=== PATIENT | female | born 1995 | race Caucasian/White ===

== ENCOUNTER 2021-01-25 10:04 | Outpatient (REF) | payer OTHER, SELFPAY ==
[2021-01-26 14:02] LABS: C. trachomatis RNA TMA NOT DETECTED (NOT DETECTED); N. gonorrhoeae RNA TMA NOT DETECTED (NOT DETECTED)
== END 2021-01-25 10:05 | disposition home or self-care (01) ==
LOC: HO.LAB 10:04
PROVIDERS: PCP Pediatrics; Referring Provider Pediatrics; Visit Provider Advanced Practice Midwife
DX: Z01.419 Encounter for gynecological examination (general) (routine) without abnormal findings (principal); Z20.2 Contact with and (suspected) exposure to infections with a predominantly sexual mode of transmission
CPT/HCPCS: 36415; 87491; 87591

== ENCOUNTER 2022-02-01 08:04 | Outpatient (REF) | payer OTHER, SELFPAY ==
[2022-02-01 16:23] LABS: CT PCR NOT DETECTED (Not Detect.); NG PCR NOT DETECTED (Not Detect.)
== END 2022-02-01 08:05 | disposition home or self-care (01) ==
LOC: HO.LAB 08:04
PROVIDERS: PCP Pediatrics; Visit Provider Advanced Practice Midwife
DX: Z01.419 Encounter for gynecological examination (general) (routine) without abnormal findings (principal); Z20.2 Contact with and (suspected) exposure to infections with a predominantly sexual mode of transmission
CPT/HCPCS: 87491; 87591

== ENCOUNTER 2022-07-25 09:25 | Day surgery (SDC) | payer OTHER, SELFPAY ==
[2022-07-25] VITALS (8 sets, daily range): BP systolic 137–153; BP diastolic 88–106; PULSE 92–102; RESP 14–22; TEMP 36.6–37.2; O2SAT 95–97; BMI 37.8
--- NOTE | ~2022-07-25 | FL_ITS ---
EXAMINATION: XR LUMBAR PUNCTURE CLINICAL INFORMATION: Pseudotumor cerebri with headache, 04/08 today. COMPARISON: None TECHNIQUE: Following explaining fluoroscopy-guided lumbar puncture procedure, benefits and risks, a written consent was obtained. Patient was placed prone on fluoroscopy table and optimal site was selected and marked on the skin. The area was cleaned and draped with 2% chlorhexidine solution. 1% lidocaine was injected at puncture site. A 20-gauge short spinal needle was then advanced from the skin intrathecally at the L4-L5 disc level. Following removing the stylet and observing CSF return, the patient was quickly placed in left lateral decubitus view and opening CSF pressure was obtained. Subsequently CSF fluid was collected in 4 test tubes. Following collection of CSF the stylet was reintroduced and needle withdrawn. Complete hemostasis achieved at puncture site with sterile Band-Aid applied at puncture site. Patient tolerated procedure extremely well. FINDINGS: On a single image of the lumbar spine there is maintained lumbar lordosis. The vertebral heights, alignment and disc heights are normal. There is a lumbar puncture needle at the L4-L5 disc level. Opening CSF pressure measured 11.5 cm of water. Approximately 14 mL of clear CSF fluid was collected in 4 test tubes and sent to lab. FLUOROSCOPY TIME: 0.5 minutes DOSE AREA PRODUCT: 6.03 uGy-m2 (microgray-meter squared) FL/FL guided lumbar puncture LP IMPRESSION: Successful fluoroscopy-guided lumbar puncture performed at L4-L5 disc level without immediate complications.
[2022-07-25 09:45] LABS: MANUAL DIFF FLAG NO
[2022-07-25 09:49] LABS: UPreg QC Valid YES; Urine Pregnancy NEGATIVE (NEGATIVE)
[2022-07-25 09:52] LABS: Basophils Absolute Auto 0.1 X10*3/uL (0.0-0.2); Basophils Percent Auto 0.6 % (0-2); Eosinophils Absolute Auto 0.1 X10*3/uL (0.0-0.4); Eosinophils Percent Auto 0.7 % (0-4); Hematocrit 41.9 % (37.0-47.0); Imm Gran Abs Auto 0.02 X10*3/uL (0.00-0.03); Imm Gran Pct Auto 0.2 % (0.0-0.4); Lymphocytes Absolute Auto 3.9 X10*3/uL (1.2-4.9); Lymphocytes Percent Auto 44.1 % (20-40); Mean Corpuscular HGB Conc 35.8 g/dl (31.0-35.0); Mean Corpuscular Hemoglobin 28.7 pg (27.0-33.0); Mean Corpuscular Volume 80.1 fL (80.0-98.0); Monocytes Absolute Auto 0.6 X10*3/uL (0.1-1.2); Monocytes Percent Auto 6.7 % (2-11); Neutrophils Absolute Auto 4.3 x10*3/uL (2.0-8.3); Neutrophils Percent Auto 47.7 % (45-73); Platelet Count 272 X10*3/uL (160-400); Prothrombin Time 11.6 SEC (10.0-13.1); Red Blood Count 5.23 X10*6/uL (4.20-5.50); Red Cell Distribution Width 12.5 % (11.0-16.0); White Blood Count 8.9 X10*3/uL (4.8-10.8)
[2022-07-25 09:55] LABS: Partial Thromboplastin Time 32.4 SEC (26.0-36.4)
[2022-07-25] MEDS: Acetaminophen 325 MG TABLET 975 MG PO (12:40)
[2022-07-25 13:24] LABS: CSF Appearance Clear, Colorless; CSF Tube # 1
[2022-07-25 13:35] LABS: Glucose CSF 59 mg/dL; Total Protein CSF 49.4 mg/dL (15-45)
[2022-07-25 13:53] LABS: Appearance CSF CLEAR; CSF Tube # 4; Color CSF COLORLESS; Lymphocytes CSF 100 %; Red Blood Cell CSF 0 MM*3; White Blood Cell CSF 1 MM*3
== END 2022-07-25 15:00 | disposition home or self-care (01) ==
PROVIDERS: Psychiatry & Neurology Neurology; PCP Pediatrics; Visit Provider Radiology Diagnostic Radiology
PROC: 009U3ZZ Drainage of Spinal Canal, Percutaneous Approach (ICD-10-PCS; CPT 62270; principal; 2022-07-25 11:00)
DX: G93.2 Benign intracranial hypertension (principal); G44.209 Tension-type headache, unspecified, not intractable
CPT/HCPCS: 36415; 62328; 81025; 82945; 84157; 85025; 85610; 85730; 87015; 87070; 87205; 89051

== ENCOUNTER 2023-06-10 08:07 | Outpatient (REF) | payer OTHER, SELFPAY ==
[2023-06-11 11:54] LABS: CT PCR NOT DETECTED (Not Detect.); NG PCR NOT DETECTED (Not Detect.)
== END 2023-06-10 08:08 | disposition home or self-care (01) ==
LOC: HO.LNP 08:07
PROVIDERS: PCP Pediatrics; Visit Provider Advanced Practice Midwife
DX: Z01.419 Encounter for gynecological examination (general) (routine) without abnormal findings (principal); Z20.2 Contact with and (suspected) exposure to infections with a predominantly sexual mode of transmission
CPT/HCPCS: 0353U; 88142

== ENCOUNTER 2023-06-10 08:07 | Outpatient (AMB) | payer OTHER, SELFPAY ==
--- NOTE | 2023-06-10 08:11 | MHC.OFFVIS ---
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 Scribed for COCO Hernandez by Kati Brink medical driver, on 06/10/2023 at 8:21 am EST. Silk Winding Machine Operator: Silk Winding Machine Operator Present (Olive) Allergies No Known Allergies Allergy (Verified 06/10/23 08:13) Is last menstrual period known: Yes Last menstrual period: 05/16/23 HPI HPI Comments History of Present Illness Details She is a premenopausal woman presenting for annual exam. Doing well with no obgyn hospitalist physician concerns. She admits to eating healthy and tries to stay active with exercise. Currently sexually active with new partner. Uses Paragard for BC and is doing well on it. Denies vaginal itching and irritation. STD screening offered; she accepts. STD blood work offered; she declines Denies family hx of colon and ovarian cancer. Last pap smear 01/20/20. [facility] Medical History Chronic headaches Concussion Vitamin D deficiency Surgical History Hx of wisdom tooth extraction Family History Maternal Grandmother Lung cancer Breast cancer Maternal Grandfather CVD (cardiovascular disease) Paternal Grandfather CVD (cardiovascular disease) Social History Alcohol intake: current Alcohol intake frequency: holidays/special occasions only Patient Tobacco Use Status: Never used Tobacco Current occupational status: employed Current occupation: [employer] Sexual orientation: Straight/Heterosexual Gender identity: Female Female Reproductive History Menstrual Age of Menarche: 13 Date of last menstrual period: 05/16/23 control method: copper IUCD (Paragard 03/2017; IUD strings present 05/2023) Total pregnancies: 0 Date of last pap smear: 01/20/20 (neg) Physical Exam Vital Signs: Last Vital Signs BP 132/100 H 06/10/23 08:12 BMI result Body Mass Index 36.7 Const General: cooperative, healthy appearing, no acute distress, well developed and alert Orientation/consciousness: patient oriented x3 HEENT Head: Yes normal to inspection Eyes General: appearance normal, both eyes and all related structures Neck Neck: Yes normal visual inspection Thyroid: Thyroid normal Chest Chest palpation & inspection: normal inspection of the chest Breast/axilla inspection: normal inspection of the breasts (no puckering, dimpling, peau de orange, retraction, discharge, masses) Breast/axilla palpation: normal palpation of the breasts Resp Effort & Inspection: normal respiratory effort GI Inspection: Yes normal to inspection Palpation (GI): Soft to palpation (to palpation) Rectal Exam - Female: deferred General: Yes bladder normal to inspection External Female Exam: normal external appearance and normal appearance of the urethra Speculum Exam - Vagina: normal appearance of the vagina, normal palpation and normal vaginal discharge Speculum Exam - Cervix: normal appearance of the cervix, normal palpation and Other cervical findings present (IUD strings present, bled slightly with pap) Bimanual exam- vagina & uterus: normal palpation and normal palpation Bimanual Exam- Adnexa, other: normal adnexae and no masses Skin General skin exam: no rashes or lesions noted Neuro General: patient oriented x3 Cognition (Neuro): normal cognition Extrem General: Yes normal to inspection Psych Attitude: cooperative Thought process: Normal thought process present Thought content: Normal thought content present Assessment & Plan Assessment & Plan (1) Encounter for annual routine gynecological examination: Code(s): Z01.419 - Encounter for gynecological examination (general) (routine) without abnormal findings Plan: Discussed: Current recommendations for pap smears per ASCCP guidelines Breast awareness and periodic self breast exams. Maintaining a healthy lifestyle including a well balanced diet and routine exercise. GC/CT panel done today. Await results and treat accordingly. All of her questions and concerns were addressed to the best of my ability. RTO in one year for AG. (2) Potential exposure to STD: Code(s): Z20.2 - Contact with and (suspected) exposure to infections with a predominantly sexual mode of transmission Orders: Orders CT NG by PCR Today Z20.2 - Contact with and (suspected) exposure to infections with a predominantly sexual mode of transmission Pap Smear Today Z01.419 - Encounter for gynecological examination (general) (routine) without abnormal findings Coding Level of Care Code Est Pt Prev Care 18-39y(75474) Diagnoses Encounter for annual routine gynecological examination Z01.419 Potential exposure to STD Z20.2
[2023-06-10 08:12] VITALS: BP 132/100; BMI 36.7
[2023-06-10 08:45] VITALS: BP 122/86
== END 2023-06-10 09:00 | disposition home or self-care (01) ==
LOC: HO.HWS 08:07
PROVIDERS: PCP Pediatrics; Visit Provider Advanced Practice Midwife
DX: Z01.419 Encounter for gynecological examination (general) (routine) without abnormal findings (principal); Z20.2 Contact with and (suspected) exposure to infections with a predominantly sexual mode of transmission
CPT/HCPCS: 99395

== ENCOUNTER 2024-09-14 14:09 | Outpatient (REF) | payer BC, SELFPAY ==
[2024-09-15 11:25] LABS: Bacterial Vaginosis PCR NEGATIVE (Negative); Candida Group PCR NOT DETECTED (Not Detect); Candida glab krusei PCR NOT DETECTED (Not Detect); Trichomonas vaginalis PCR NOT DETECTED (Not Detect)
[2024-09-15 11:28] LABS: CT PCR NOT DETECTED (Not Detect.); NG PCR NOT DETECTED (Not Detect.)
== END 2024-09-14 14:10 | disposition home or self-care (01) ==
LOC: HO.LNP 14:09
PROVIDERS: PCP Pediatrics; Visit Provider Advanced Practice Midwife
DX: Z01.419 Encounter for gynecological examination (general) (routine) without abnormal findings (principal); Z20.2 Contact with and (suspected) exposure to infections with a predominantly sexual mode of transmission
CPT/HCPCS: 0352U; 87491; 87591

== ENCOUNTER 2024-09-14 14:09 | Outpatient (AMB) | payer BC, SELFPAY ==
--- NOTE | 2024-09-14 14:10 | A.OFFVIS_ITS ---
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 Doing well with no concerns. She tries to eat healthy and stays active with exercise. Regular monthly menses with the ParaGard IUD inserted 2017. Currently is sexually active. She denies vaginal itching and irritation. STI screening offered; she accepts, declined blood work. Denies family history of ovarian or colon cancer. FH breast cancer. Last pap smear 2022, negative. [facility] Medical History (Updated 09/14/24 @ 14:45 by Yoly Borja CNM) History of use of contraceptive intrauterine device (IUD) Vitamin D deficiency Concussion Chronic headaches Surgical History Hx of wisdom tooth extraction Family History Maternal Grandmother Lung cancer Breast cancer Maternal Grandfather CVD (cardiovascular disease) Paternal Grandfather CVD (cardiovascular disease) Social History Alcohol intake: current Alcohol intake frequency: holidays/special occasions only Comment: previously medicated Patient Tobacco Use Status: Never used Tobacco Current occupational status: employed Current occupation: [employer] Sexual orientation: Straight/Heterosexual Gender identity: Female Female Reproductive History Menstrual Age of Menarche: 13 Duration of menses: 8-10 days Date of last menstrual period: 08/30/24 control method: copper IUCD (2018) Total pregnancies: 0 Date of last pap smear: 06/12/23 History of abnormal pap smear: No History of STI: No Review of Systems Const All systems reviewed & are unremarkable except as noted in HPI and below Reports as per HPI Eyes Reports no additional complaints ENT Reports no additional complaints Card Reports no additional complaints Resp Reports no additional complaints GI Reports as per HPI and Reports no additional complaints Reports as per HPI Musc Reports no additional complaints Skin/Breast Reports as per HPI Neuro Reports no additional complaints Psych Reports no additional complaints Endo Reports no additional complaints Joe/Lymph Reports no additional complaints Aller/Immun Reports no additional complaints Physical Exam Vital Signs: Last Vital Signs BP 124/66 09/14/24 14:11 BMI result Body Mass Index 35.7 Const General: cooperative, healthy appearing, no acute distress, well developed and alert Orientation/consciousness: patient oriented x3 HEENT Head: Yes normal to inspection Eyes General: appearance normal, both eyes and all related structures Neck Neck: Yes normal visual inspection Thyroid: Thyroid normal Chest Chest palpation & inspection: normal inspection of the chest and other (no puckering, dimpling, peau de orange, retraction, discharge, masses) Breast/axilla inspection: normal inspection of the breasts Breast/axilla palpation: normal palpation of the breasts Resp Effort & Inspection: normal respiratory effort GI Inspection: Yes normal to inspection Palpation (GI): Soft to palpation Rectal Exam - Female: deferred General: Yes bladder normal to palpation External Female Exam: normal external appearance and normal appearance of the urethra Speculum Exam - Vagina: normal appearance of the vagina, normal palpation and normal vaginal discharge Speculum Exam - Cervix: normal appearance of the cervix, normal palpation and Other cervical findings present (IUD strings at the os) Bimanual exam- vagina & uterus: normal bimanual exam, normal palpation, uterine size normal, bladder normal to palpation, normal palpation and non-tender Bimanual Exam- Adnexa, other: no masses Skin General skin exam: no rashes or lesions noted Rashes: no rashes Neuro General: patient oriented x3 Cognition (Neuro): normal cognition Extrem General: Yes normal to inspection Psych Attitude: cooperative Thought process: Normal thought process present Assessment & Plan Assessment & Plan (1) Encounter for annual routine gynecological examination: Code(s): Z01.419 - Encounter for gynecological examination (general) (routine) without abnormal findings Category: Medical Plan: Discussed: Current recommendations for pap smears per ASCCP guidelines. Breast awareness and periodic breast exams. Maintain a healthy lifestyle including a well balanced diet and routine exercise. Patient verbalizes understanding and agrees to the plan of care. She was given opportunity to ask questions and all questions were answered to the best of my ability. 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 This note is constructed using voice recognition software. While every effort has been made to ensure accuracy, strike operations officer errors may have been included. Orders: Orders CT NG by PCR Today Z01.419 - Encounter for gynecological examination (general) (routine) without abnormal findings Bacterial Vaginosis Panel Today Z01.419 - Encounter for gynecological examination (general) (routine) without abnormal findings Coding Level of Care Code Est Pt Prev Care 18-39y(43566) Diagnoses Encounter for annual routine gynecological examination Z01.419
[2024-09-14 14:11] VITALS: BP 124/66; BMI 35.7
== END 2024-09-14 14:48 | disposition home or self-care (01) ==
LOC: HO.HWS 14:09
PROVIDERS: PCP Pediatrics; Visit Provider Advanced Practice Midwife
DX: Z01.419 Encounter for gynecological examination (general) (routine) without abnormal findings (principal)
CPT/HCPCS: 99395

== ENCOUNTER 2025-02-22 14:35 | Outpatient (AMB) | payer OTHER, SELFPAY ==
--- NOTE | 2025-02-22 14:25 | A.OFFPC_ITS ---
Vital Signs 02/22/25 14:33 Height 5 ft 3 in Weight 188 lb BMI 33.3 BP 142/82 H Blood Pressure Location Rt brachial Pulse 86 Pulse Source Pulse Oximeter Temp 98.2 F Pulse Oximetry (%) 98 Intake Visit Reasons: establish care Intake Note: no issues Allergies No Known Allergies Allergy (Verified 02/22/25 14:45) Medication List - Last Reconciled 02/22/25 by Kellie Loredo PA-C amitriptyline 75 mg PO BEDTIME [id number]-[id number]-[id number] [id number] mg 1 cap PO Q4H PRN copper (ParaGard T 380A) intrauterine topiramate 100 mg PO BID PFSH Medical History Class 1 obesity with body mass index (BMI) of 33.0 to 33.9 in adult Establishing care with new doctor, encounter for Annual physical exam History of use of contraceptive intrauterine device (IUD) Vitamin D deficiency Concussion Chronic headaches Surgical History Hx of wisdom tooth extraction Family History Maternal Grandmother Lung cancer Breast cancer Maternal Grandfather CVD (cardiovascular disease) Paternal Grandfather CVD (cardiovascular disease) Social History Alcohol intake: current Alcohol intake frequency: holidays/special occasions only Comment: previously medicated Patient Tobacco Use Status: Never used Tobacco Current occupational status: employed Current occupation: [employer] Sexual orientation: Straight/Heterosexual Gender identity: Female Female Reproductive History Menstrual Age of Menarche: 13 Physical exam (Primary Care) Vital Signs: Last Vital Signs Temp 98.2 F 02/22/25 14:33 Pulse 86 02/22/25 14:33 BP 142/82 H 02/22/25 14:33 Pulse Ox 98 02/22/25 14:33 Care Plan Goal for BP management: <130/80 at goal BMI result Body Mass Index 33.3 BMI Assessment/Plan discussion: High BMI High, discussed plan: lifestyle, weight reduction, dietary, physical activity and alcohol moderation Tobacco/Smoking Status: Tobacco use Status Patient Tobacco Use Status Never used Tobacco 02/22/25 14:31 Coding Level of Care Code New Pt Prev Care 18-39yr(19040 Diagnoses Annual physical exam Z00.00 Establishing care with new doctor, encounter for Z76.89 Chronic headaches R51.9; G89.29 Concussion S06.0X9A Vitamin D deficiency E55.9 Class 1 obesity with body mass index (BMI) of 33.0 to 33.9 in adult E66.811; Z68.33 Assessment & Plan Assessment & Plan (1) Annual physical exam: Code(s): Z00.00 - Encounter for general adult medical examination without abnormal findings Category: Medical (2) Establishing care with new doctor, encounter for: Code(s): Z76.89 - Persons encountering health services in other specified circumstances Category: Medical (3) Chronic headaches: Code(s): R51.9 - Headache, unspecified; G89.29 - Other chronic pain Category: Medical Plan: Patient to continue amitriptyline 75 mg at bedtime, Fioricet 1 tablet every 4 hours as needed, topiramate 100 mg p.o. b.i.d. and regular follows with Neurology. Condition is chronic and stable continue to monitor. (4) Concussion: Code(s): S06.0X9A - Concussion with loss of consciousness of unspecified duration, initial encounter Category: Medical Plan: Patient to continue amitriptyline 75 mg at bedtime, Fioricet 1 tablet every 4 hours as needed, topiramate 100 mg p.o. b.i.d. and regular follows with Neurology. Condition is chronic and stable continue to monitor. (5) Vitamin D deficiency: Code(s): E55.9 - Vitamin D deficiency, unspecified Category: Medical Plan: Patient to start taking vitamin-D supplements. Condition is chronic and stable continue to monitor. (6) Class 1 obesity with body mass index (BMI) of 33.0 to 33.9 in adult: Code(s): E66.811 - Obesity, class 1; Z68.33 - Body mass index [BMI] 33.0-33.9, adult Category: Medical Plan: Patient to continue improving her diet and exercise regimen. Condition is chronic and stable continue to monitor. Plan Plan Patient was informed and verbally consented to the use of an ambient scribe for clinic note documentation during this visit. 1. Vitamin D Deficiency Advised the patient to initiate vitamin D supplementation to prevent bone health deterioration over time. 2. Chronic Headaches Chronic headaches attributed to a previous concussion; ongoing neurologist consultations are appropriate at this stage. 3. 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 4. Weight Management Support recommended for ongoing lifestyle changes pertinent to weight maintenance, including caloric monitoring and moderate exercise. Discussion Notes We reviewed the patient's immunization history to ensure compliance with nursing school requirements, identifying a potential need for an antibody test to ascertain hepatitis B immunity. I explained vaccination protocols, particularly highlighting the need for Tdap renewal if immunity wanes. Risks of vitamin D deficiency were discussed, with a recommendation for supplementation to prevent bone-related issues. We discussed her family history of breast cancer, the implications for cancer screening, and potential adjustments to the schedule of mammograms. Her weight loss strategies and efforts were acknowledged, endorsing continued self-management efforts, considering her proactive engagement in lifestyle modifications. Future communication regarding further screening or procedural advice will occur as necessary. Orders: Orders C Reactive Protein Today Z00.00 - Encounter for general adult medical examination without abnormal findings Magnesium Today Z00.00 - Encounter for general adult medical examination without abnormal findings Vitamin D 25-OH Total Today Z00.00 - Encounter for general adult medical examination without abnormal findings Vitamin B12 and Folate Today Z00.00 - Encounter for general adult medical examination without abnormal findings TSH reflex Free T4 Today Z00.00 - Encounter for general adult medical examination without abnormal findings Testosterone, Total Today Z00.00 - Encounter for general adult medical examination without abnormal findings Estrogen Today Z00.00 - Encounter for general adult medical examination without abnormal findings Hemoglobin A1c Today Z00.00 - Encounter for general adult medical examination without abnormal findings Comprehensive Linneus. Panel Fast Today Z00.00 - Encounter for general adult medical examination without abnormal findings Complete Blood Count Auto Diff Today Z00.00 - Encounter for general adult medical examination without abnormal findings Lipid Panel Today Z00.00 - Encounter for general adult medical examination without abnormal findings Liver Panel Today Z00.00 - Encounter for general adult medical examination without abnormal findings Progesterone Today Z00.00 - Encounter for general adult medical examination without abnormal findings Prolactin Today Z00.00 - Encounter for general adult medical examination without abnormal findings Hepatitis B Surface Ab Qnt Today Z00.00 - Encounter for general adult medical examination without abnormal findings Patient Instructions: Patient Instructions - Obtain vitamin D supplements to address deficiency. - Continue weight management efforts through regular exercise and dietary adjustments. - Undergo blood testing for hepatitis B immunity as outlined, with follow-up vaccinations if needed. - Maintain regular neurologist consultations for headache management. - Monitor for any new symptoms; seek care if concerns arise. - Attend appointments for annual check-ups and screenings as per a structured timeline. - Review patient portal or contact office for any documentation or follow-up response needed regarding any further screenings or evaluations discussed. 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 She has a history of chronic headaches stemming from a concussion in high school around 2009, for which she consults with a neurologist and has undergone imaging in the past. The headaches have been chronic since the initial concussion. In terms of preventative healthcare, she was not previously taking vitamin D supplements despite having a deficiency. Her family history includes maternal breast cancer on her grandmother's side, wh ich has implications for the management of cancer screening going forward. For her nursing school admission, the patient sought to confirm her immunization record starting from childhood, including COVID, influenza, Tdap, MMR, and hepatitis B. She has been compliant with Tb screening requirements for her employment, and further testing might be performed to verify her immunity to hepatitis B. Following her wellness goals, the patient also worked towards weight loss, going from 230 pounds in December of the previous year to 188 pounds during this visit. 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 - Exercise: Reports regular walking as part of weight management. - Family History: Maternal grandmother had breast cancer. - Nutritional Intake: Engaged in caloric reduction and self-directed weight loss efforts. Review of Systems - Neurological: Reports chronic headaches since a concussion in 2009. - Musculoskeletal: Denies history of falls or balance issues. - General: Denies recent weight gain or unintentional weight loss beyond self- directed. - Hematological: Denies history of anemia or bleeding disorders. Physical Exam Appearance: Alert. Oriented X3. No acute distress. Head: Normal external exam. Normocephalic. Atraumatic. Eyes: Pupils are equal, round, and reactive to light. Extraocular movements intact. Conjunctiva and sclera normal. Eyelids normal. Ears: External auditory canal normal. Tympanic membranes normal. Throat: Pharynx normal. Uvula midline. Moist mucous membranes. Neck: Normal inspection. Neck supple. Full range of motion. No adenopathy. Thyroid Normal. No meningeal signs. No neck mass noted. Cardiovascular: Normal heart rate and rhythm. Heart sound normal. No murmurs noted. Pulses normal throughout. Respiratory: No respiratory distress. Painless inspiration. Breath sounds normal. No wheezes/rales/rhonchi noted. Chest nontender. No accessory muscle usage noted or decreased air movement noted. Abdomen: Soft and nontender. Bowel sounds normal in all 4 quadrants. No distention noted. No organomegaly noted. No visible injury noted. Back: No costovertebral angle tenderness. Full range of motion noted. Skin: Skin warm and dry. Normal skin color. Normal skin turgor. No rashes/lesions/lacerations noted. Extremities: No lower extremity edema. Extremities exhibit normal range of motion. Extremities nontender. Neuro: Oriented X 3. No motor deficit. No sensory deficit. Reflexes normal. Chronic headaches noted, with a history of concussion in high school. Vitamin D deficiency noted.
[2025-02-22 14:33] VITALS: BP 142/82; PULSE 86; TEMP 36.8; O2SAT 98; BMI 33.3
--- OUTSIDE RECORDS SUMMARY | 2025-02-22 18:16 | XMS_ITS | Clinical Summary ---
Author Organization [facility] Address [address] [place] [address] Care Team Providers Care Bail Attacher Name Role Phone Unavailable Primary Care Provider Unavailabl e Social History Tobacco Use Types Packs/Day Years Used Date Smoking Tobacco: Never Assessed Sex and Gender Information Value Date Recorded Sex Assigned at Not on file Gender Identity Not on file Sexual Orientation Not on file Plan of Treatment Health Maintenance Due Date Last Done Comments Hepatitis C Virus Screening 1994 HIV Screening 2007 DTaP/Tdap/Td Vaccines (1 - Tdap) 2013 Hepatitis B Vaccines (1 of 3 - 19+ 3-dose series) 2013 COVID-19 Vaccine ( - 2023-2 5 season) 2024 HPV Vaccines Aged Out No longer eligi ble based on patient's age to complete this topic Pneumococcal Vaccine: Pediat genesis (0-5 Years) and At-Risk Patients (6 to 49 Years) Aged Out No longer eligible b ased on patient's age to complete this topic
--- OUTSIDE RECORDS SUMMARY | 2025-02-22 18:16 | XMS_ITS | Clinical Summary ---
Author Organization [facility] Address [address] [place] [address] Phone Care Team Providers Care 1St Grade Teacher Name Role Phone Mariel Rosas MD Primary Care Provider [phone] Allergies No known active allergies Medications amitriptyline 75 MG tablet Take by mouth daily. Active topiramate 100 MG tablet Take 100 mg by mouth 2 times daily. Active MELATONIN GUMMIES PO Take by mouth. Acti ve Paragard Intrauterine Copper intrauterine device by Intrauterine route. Active Active Problems Problem Noted Date Diagnosed Date Overweight 08/11/2018 Assessment & Plan (08/11/2018 10:37 AM EDT): Counseling done. Chronic nonintractable headache 08/10/2018 Assessment & Plan (08/11/2018 10:35 AM EDT): Seeing Neurology, currently on Topamax and Amitriptyline, headaches are still not well-controlled. She has an upcoming appt with Neuro, and she will discuss persistent daily CAMERON at that visit. Elevated blood pressure read ing in office without diagnosis of hypertension 08/10/2018 Assessment & Plan (08/11/2018 10:48 AM EDT): Pt continues with elevated BP in the office. This has been an issue at previous visits as well, and could be contributing to her headaches. Will recheck in 3 months. 08-10-18: 144/98 (left arm, sitting) 02-17-18: 120/86 (L, sit) 08-28-17: 118/78 (L, sit) 08-07-17: 132/90 (L, sit), repeat 124/84 (L, sit) 11/15: 130/90 (L, sit) 10/16: 114/72 (L, sit) 07/16: 130/80 (L, sit) Immunizations Immunization Administration Dates Next Due DTaP 12/27/1998, 6,06/23/1995,04/23,03/05/1995 HPV, Quadrivalent 03/18/2014,10/23/2013,06/17/20 13 Hep A, Adult 08/10/2018 Hep B, ped/adol 09/23/1995,01/24/1995,1994 IPV 12/01/1998, 5,03/31/1995,03/01 Influenza, injectable, quadr ivalent, preservative free 08/10/2018 MMR 12/27/1998,03/24/1996 Meningococcal Conj (Menactra) MCV4P 08/06/2012,0 07/08/2007 Tdap 08/07/2017,07/16/2016,01/01/2007 Varicella 06/25/2010,03/24/1996 Family History Medical History Relation Name Comments No Known Problems Brother Guillermo No Known Problems Father Robin No Known Problems Mother Cem Relation Name Status Comments Brother Guillermo Alive Father Robin Alive Mother Cem Alive Social History Tobacco Use Types Packs/Day Years Used Date Smoking Tobacco: Never Smokeless Tobacco: Never Hunger/Food Answer Date Recorded In the last 12 months, did y ou or your family ever eat less than you felt you should because there wasn't enough money for food? No 08/21/2020 Stable Housing Answer Date Recorded Are you worried that in the next 2 months you may not have stable housing? No 08/21/2020 Transportation Concerns Answer Date Rec orded In the last 12 months, have you or your family ever had to go without healthcare because you didn't have a way to get there? No 08/21/2020 Hazards in Home Answer Date Recorded Think about the place you li ve. Do you have problems with any of the following? Pests (mice or roaches), mold, no/not working smoke detectors, water leaks, no window guards. No 2019 Financing Utilities Answer Date Recorde d In the last 12 months, has t he electric, gas, oil, or water company threatened to shut off your services in your home? No 08/21/2020 Safety at Home Answer Date Recorded Are you or your family worried about feeling saf e in your home? No 08/21/2020 Outside Support Answer Date Recorded Do you feel that you need mo re support from other people or programs to help you care for yourself or your family? No 08/21/2020 Understanding Health Concerns Answer Da te Recorded Do you need help understandi ng your or your child's healthcare needs (diagnosis, medications, plan, etc.)? No 08/21/2020 Financing Health Concerns Answer Date R ecorded In the last 12 months, was t here a time when your child needed to see a doctor or get medications or supplies but could not because of cost? No 08/21/2020 Missing School or Work Answer Date Sourav rded Did you or your child miss s chool or work because of a health problem that could have been avoided? No 08/21/2020 Comments No Sex and Gender Information Value Date Recorded Sex Assigned at Not on file Legal Sex Female 11:26 AM EDT Gender Identity Not on file Sexual Orientation Straight 08/12/2019 10 :13 AM EDT Last Filed Vital Signs Vital Sign Reading Time Taken Comments Blood Pressure 150/106 08/28/2020 5:58 PM EDT Pulse 88 08/28/2020 4:01 PM EDT Temperature 37.1 ??C (98.7 ??F) 08/28/2020 4:01 PM ED T Respiratory Rate - - Oxygen Saturation - - Inhaled Oxygen Concentration - - Weight 98.3 kg (216 lb 11.2 oz) 08/28/2020 4:01 PM EDT Height 162.6 cm (5' 4 ) 08/28/2020 4:01 PM EDT Body Mass Index 37.2 08/28/2020 4:01 PM EDT Plan of Treatment Health Maintenance Due Date Last Done Comments Influenza Vaccines (#1) 2024 09/21/20, 09/21/2019, 08/10/2018 COVID-19 Vaccine (2 - season) 2024 04/05/2021 DTaP,Tdap,and Td Vaccines (9 - Td or Tdap) 08/07/2027 08/07/2017, 07/16/2016, 01/01/2007, Additional history exists Hepatitis B Vaccines Completed 09/23/1995, 01/24/1995, 1994 IPV Vaccines Completed 12/01/1998, 12/1994, 03/31/1995, Additional history exists MMR Vaccines Completed 12/27/1998, 03/24/1996 Varicella Vaccines Completed 06/25/2010, 03/24/1996 Meningococcal Vaccine Completed 08/06/2012, 007 HPV Vaccines Completed 03/18/2014, 10/02, 06/17/2013 Hepatitis A Vaccines Aged Out 08/10/2018 No long er eligible based on patient's age to complete this topic HIB Vaccines Aged Out No longer eligi ble based on patient's age to complete this topic Men B Vaccine Aged Out No longer elig ible based on patient's age to complete this topic Pneumococcal Vaccine Aged Out No long er eligible based on patient's age to complete this topic Procedures * Due to [facility] law, this organization might not be sharing sensitive test results. Procedure Name Priority Date/Time Associated Diagnosis Comments CHLAMYDIA AND GONORRHEA, AMPLIFIED Routine 08/28/2020 4:20 PM EDT Well adult exam from Last 3 Months or Most Recently Relevant to Health Maintenance Results * Due to [place] [employer] law, this organization might not be sharing sensitive test results. * Chlamydia and Gonorrhea, Amplified (08/28/2020 4:20 PM EDT) Chlamydia Trachomatis, DNA Probe NOT DETECTED (NEG) [facility] Comment:Reference range: NOT DETECTED URINE GC AMP PROBE NOT DETECTED (NEG) [facility] Comment: Reference range: NOT DETECTED (NOTE) The analytical performance characteristics of this assay, when used to test SurePath(TM) specimens have been determined by [employer]. The modifications have not been cleared or approved by the FDA. This assay has been validated pursuant to the CLIA regulations and is used for clinical purposes. = For additional information, please refer to https://education.Consulting Services/faq/JDD641 (This link is being provided for information/ educational purposes only.) = Test Performed by: [employer], [address] [place] [address], [place]. [address]. Roller Leveler: Yesenia Guy MD. Testing performed or reported by [facility], a Service of [facility], [facility] [place] [address] Shahriar Asencio MD, Public Works Commissioner Urine 08/28/2020 4:20 PM EDT 08/29/2020 1:43 AM EDT us Mariel Rosas MD LAB MICROBIOLOGY - GENERAL ORDER GIRMA Final Result [facility] from Last 3 Months or Most Recently Relevant to Health Maintenance Insurance MERGED [place] [facility] [id number] Care [address] 1[address] Grade Teacher Relationship Specialty Start Date End Date Mariel Rosas MD PCP - General Pediatrics 05/26/18
== END 2025-02-22 15:10 | disposition home or self-care (01) ==
LOC: HO.HMCSH 14:35
PROVIDERS: PCP Pediatrics; Visit Provider Physician Assistant Medical
DX: Z00.00 Encounter for general adult medical examination without abnormal findings (principal); Z76.89 Persons encountering health services in other specified circumstances; R51.9 Headache, unspecified; G89.29 Other chronic pain; S06.0X9A Concussion with loss of consciousness of unspecified duration, initial encounter; E55.9 Vitamin D deficiency, unspecified; E66.811 Obesity, class 1; Z68.33 Body mass index [BMI] 33.0-33.9, adult

== ENCOUNTER → 2025-02-22 14:35 | Outpatient (BNVA) | payer OTHER, SELFPAY | PROVIDERS: PCP Pediatrics; Visit Provider Physician Assistant Medical | DX: Z00.00 Encounter for general adult medical examination without abnormal findings (principal); R51.9 Headache, unspecified; G89.29 Other chronic pain; E55.9 Vitamin D deficiency, unspecified; E66.811 Obesity, class 1; Z68.33 Body mass index [BMI] 33.0-33.9, adult; S06.0X9D Concussion with loss of consciousness of unspecified duration, subsequent encounter; Z76.89 Persons encountering health services in other specified circumstances | CPT/HCPCS: 99385 ==

== ENCOUNTER 2025-02-24 08:17 | Outpatient (REF) | payer OTHER, SELFPAY ==
[2025-02-24 10:00] LABS: MANUAL DIFF FLAG NO
[2025-02-24 10:08] LABS: Basophils Percent Auto 0.4 % (0-2); Eosinophils Absolute Auto 0.1 X10*3/uL (0.0-0.4); Eosinophils Percent Auto 1.3 % (0-4); Hematocrit 45.1 % (37.0-47.0); Imm Gran Abs Auto 0.01 X10*3/uL (0.00-0.03); Imm Gran Pct Auto 0.1 % (0.0-0.4); Lymphocytes Percent Auto 43.7 % (20-40); Mean Corpuscular HGB Conc 35.5 g/dl (31.0-35.0); Mean Corpuscular Volume 81.7 fL (80.0-98.0); Mean Platelet Volume 13.5 fL (9.4-12.3); Monocytes Absolute Auto 0.5 X10*3/uL (0.1-1.2); Monocytes Percent Auto 6.6 % (2-11); Neutrophils Absolute Auto 3.3 x10*3/uL (2.0-8.3); Neutrophils Percent Auto 47.9 % (45-73); Platelet Count 194 X10*3/uL (160-400); Red Blood Count 5.52 X10*6/uL (4.20-5.50)
[2025-02-24 10:34] LABS: Estimated Average Glucose 94 mg/dL; Hemoglobin A1C 123.9131 umol/L; Hemoglobin A1c % 4.9 % (<6.0)
[2025-02-24 10:36] LABS: Alanine Aminotransferase 24 U/L (0-31); Albumin Level 4.5 g/dL (3.5-5.0); Alkaline Phosphatase 66 U/L (39-117); Anion Gap 12 (12-20); Aspartate Amino Transferase 25 U/L (5-31); Bilirubin Direct 0.2 mg/dL (0.0-0.5); Bilirubin Total 0.7 mg/dL (0.0-1.0); Blood Urea Nitrogen 11 mg/dL (9-16); C Reactive Protein 0.24 mg/dL (< or = 0.50); Carbon Dioxide 23 mmol/L (22-29); Chloride 108 mmol/L (96-108); Cholesterol 222 mg/dL (<200); Estimated Glomerular Filt Rate > 60; Glucose Fasting 88 mg/dL (60-99); HDL Cholesterol 43 mg/dL (>40); LDL Cholesterol Calculated 162 mg/dL (<100); Magnesium 2.2 mg/dL (1.6-2.6); Potassium 3.5 mmol/L (3.3-5.1); Sodium 139 mmol/L (135-145); Triglycerides 86 mg/dL (<150)
[2025-02-24 10:38] LABS: TSH reflex Free T4 1.78 uIU/mL (0.32-4.0); Vitamin D 25-OH Total 63.2 ng/mL (>30)
[2025-02-24 10:51] LABS: Folate 17.7 ng/mL (> or = 4.0); Vitamin B12 649 pg/mL (200-900)
[2025-02-25 09:44] LABS: Hepatitis B Surface Ab Qnt <5 mIU/mL (> OR = 10)
[2025-02-25 15:42] LABS: Prolactin 13.1 ng/mL
[2025-03-01 00:09] LABS: Testosterone, Total 23 ng/dL (2-45)
[2025-03-02 17:33] LABS: Estrogen 91 pg/mL
[2025-03-05 04:53] LABS: Progesterone <0.1 ng/mL
== END 2025-02-24 08:18 | disposition home or self-care (01) ==
LOC: HO.HMGCLDS 08:17
PROVIDERS: PCP Physician Assistant Medical; Visit Provider Physician Assistant Medical
DX: Z00.00 Encounter for general adult medical examination without abnormal findings (principal)
CPT/HCPCS: 36415; 80053; 80061; 80076; 82248; 82306; 82607; 82672; 82746; 83036; 83735; 84144; 84146; 84403; 84443; 85025; 86140; 86317

== ENCOUNTER 2025-03-01 13:19 | Outpatient (AMB) | payer OTHER, SELFPAY ==
--- NOTE | 2025-03-01 13:32 | AM.OFFVISNUR ---
Intake Visit Reasons: Hep B vaccine #1 Allergies No Known Allergies Allergy (Verified 02/22/25 14:45) Immunizations Recombivax HB (PF) 10 mcg/mL intramuscular suspension Performing Provider: Kellie Loredo PA-C [facility] Administered by: Maddie Gamez LPN on 03/01/25 13:33 Dose Route Admin Location Dispensed Lot Number Expiration Date [facility] Hedge Fund Trader 1 mL IM Left Deltoid 1 mL [id number] [birth year]/1927 [id number] [employer] VIS Given Date VIS Provided VIS Publication Date 03/01/25 Single Vaccine 23 Eligibility Eligibility Date Funding Source Not [facility] Eligible 03/01/25 Private Assessment & Plan Assessment & Plan Orders: Orders Hepatitis B Adult Immunization Today Z23 - Encounter for immunization Medications: New Recombivax HB (PF) (hepatitis B virus vacc.rec(PF)) 1.0 mL IM ONCE 1 mL 0RF NS Z23 - Encounter for immunization Coding
--- OUTSIDE RECORDS SUMMARY | 2025-03-01 15:39 | XMS_ITS | Clinical Summary ---
Author Organization [facility] Address [address] [place] [address] Care Team Providers Care Private Equity Analyst Name Role Phone Unavailable Primary Care Provider [...]
--- OUTSIDE RECORDS SUMMARY | 2025-03-01 15:39 | XMS_ITS | Clinical Summary ---
Author Organization [facility] Address [address] [place] [phone] Phone Care Team Providers Care Manager Testing Name Role Phone Mariel Rosas MD Primary Care Provider [phone] Allergies No known active allergies Medications amitriptyline [...] complete this topic Procedures * Due to [facility] law, this organization might not be sharing sensitive test results. Procedure Name Priority Date/Time Associated Diagnosis Comments CHLAMYDIA AND GONORRHEA, AMPLIFIED Routine 08/28/2020 4:20 PM EDT Well adult exam from Last 3 Months or Most Recently Relevant to Health Maintenance Results * Due to [place] [employer] law, this organization might not be sharing sensitive test results. * Chlamydia and Gonorrhea, Amplified (08/28/2020 4:20 PM EDT) Chlamydia Trachomatis, DNA Probe NOT DETECTED (NEG) [facility] Comment:Reference range: NOT DETECTED URINE GC AMP PROBE NOT DETECTED (NEG) [facility] Comment: Reference range: NOT DETECTED (NOTE) The analytical performance characteristics of this assay, when used to test SurePath(TM) specimens have been determined by [employer]. The modifications have not been cleared or approved by the FDA. This assay has been validated pursuant to the CLIA regulations and is used for clinical purposes. = For additional information, please refer to https://education.PasswordBank/faq/KUU830 (This link is being provided for information/ educational purposes only.) = Test Performed by: [employer], [address] [place] [address], [place]. [address]. Welfare Aide: Yesenia Guy MD. Testing performed or reported by [facility], a Service of [facility], [facility] [place] [address] Shahriar Asencio MD, Adjunct Physics Instructor Urine 08/28/2020 4:20 PM EDT 08/29/2020 1:43 AM EDT us Mariel Rosas MD LAB MICROBIOLOGY - GENERAL ORDER GIRMA Final Result [facility] from Last 3 Months or Most Recently Relevant to Health Maintenance Insurance [facility] [place] [id number] Care Teams Manager Testing Relationship Specialty Start Date End Date Mariel Rosas MD PCP - General Pediatrics 05/26/18
== END 2025-03-01 13:37 | disposition home or self-care (01) ==
LOC: HO.HMCH 13:20
PROVIDERS: PCP Physician Assistant Medical; Visit Provider Physician Assistant Medical
DX: Z23 Encounter for immunization (principal)

== ENCOUNTER → 2025-03-01 13:19 | Outpatient (BNVA) | payer OTHER, SELFPAY | PROVIDERS: PCP Physician Assistant Medical; Visit Provider Physician Assistant Medical | DX: Z23 Encounter for immunization (principal) | CPT/HCPCS: 90471; 90746 ==

== ENCOUNTER 2025-03-31 08:15 | Outpatient (AMB) | payer OTHER, SELFPAY ==
--- OUTSIDE RECORDS SUMMARY | 2025-03-31 08:26 | XMS_ITS | Clinical Summary ---
Author Organization [facility] Address [address] [place] [address] Care Team Providers Care Chisel Worker Name Role Phone Unavailable Primary Care Provider Unavailabl e Social History Tobacco Use Types Packs/Day Years Used Date Smoking Tobacco: Never Assessed Comments Unknown Sex and Gender Information Value Date Recorded Sex Assigned at Not on file Legal Sex Female 5:49 PM EDT Gender Identity Not on file Sexual Orientation Not on file Plan of Treatment Health Maintenance Due Date Last Done Comments Hepatitis C Virus Screening 1994 HIV Screening 2007 DTaP/Tdap/Td Vaccines (1 - Tdap) 2013 Hepatitis B Vaccines (1 of 3 - 19+ 3-dose series) 2013 COVID-19 Vaccine (2023-2 5 season) 2024 HPV Vaccines Aged Out No longer eligi ble based on patient's age to complete this topic Pneumococcal Vaccine: Pediat genesis (0-5 Years) and At-Risk Patients (6 to 49 Years) Aged Out No longer eligible b ased on patient's age to complete this topic
--- OUTSIDE RECORDS SUMMARY | 2025-03-31 08:26 | XMS_ITS | Clinical Summary ---
Author Organization [facility] Address [address] [place] [phone] Phone Care Team Providers Care Operator Lights Name Role Phone Mariel Rosas MD Primary Care Provider [phone] Allergies No known active allergies Medications amitriptyline [...] complete this topic Procedures * Due to [facility] law, this organization might not be sharing sensitive test results. Procedure Name Priority Date/Time Associated Diagnosis Comments CHLAMYDIA AND GONORRHEA, AMPLIFIED Routine 08/28/2020 4:20 PM EDT Well adult exam from Last 3 Months or Most Recently Relevant to Health Maintenance Results * Due to [place] [employer] law, this organization might not be sharing sensitive test results. * Chlamydia and Gonorrhea, Amplified (08/28/2020 4:20 PM EDT) Chlamydia Trachomatis, DNA Probe NOT DETECTED (NEG) [facility] Comment:Reference range: NOT DETECTED URINE GC AMP PROBE NOT DETECTED (NEG) [facility] Comment: Reference range: NOT DETECTED (NOTE) The analytical performance characteristics of this assay, when used to test SurePath(TM) specimens have been determined by [employer] The modifications have not been cleared or approved by the FDA. This assay has been validated pursuant to the CLIA regulations and is used for clinical purposes. = For additional information, please refer to https://education.MedAptus/faq/CAY613 (This link is being provided for information/ educational purposes only.) = Test Performed by: [employer], [address] [place] [address], [place]. [address]. Oil Well Gun Perforator Operator: Yesenia Guy MD. Testing performed or reported by [facility], a Service of [facility], [facility] [place] [address] Shahriar Asencio MD, Credit Administration Manager Urine 08/28/2020 4:20 PM EDT 08/29/2020 1:43 AM EDT us Mariel Rosas MD LAB MICROBIOLOGY - GENERAL ORDER GIRMA Final Result [facility] from Last 3 Months or Most Recently Relevant to Health Maintenance Insurance [place] [id number] Care Teams Operator Lights Relationship Specialty Start Date End Date Mariel Rosas MD PCP - General Pediatrics 05/26/18
--- NOTE | 2025-03-31 08:31 | AM.OFFVISNUR ---
Intake Visit Reasons: Hep B vaccine #2 Allergies No Known Allergies Allergy (Verified 02/22/25 14:45) Immunizations Recombivax HB (PF) 10 mcg/mL intramuscular suspension Performing Provider: Kellie Loredo PA-C [facility] Administered by: Melanie Peña RN on 03/31/25 08:31 Dose Route Admin Location Dispensed Lot Number Expiration Date [facility] Community Artist 1 mL IM Left Deltoid 1 mL [id number] 01/13/27 [id number] [employer] VIS Given Date VIS Provided VIS Publication Date 03/31/25 Single Vaccine 23 Eligibility Eligibility Date Funding Source Not [facility] Eligible 03/31/25 Private Assessment & Plan Assessment & Plan Orders: Orders Hepatitis B Adult Immunization Today Z23 - Encounter for immunization Medications: New Recombivax HB (PF) (hepatitis B virus vacc.rec(PF)) 1.0 mL IM ONCE 1 mL 0RF NS Z23 - Encounter for immunization Coding
== END 2025-03-31 08:37 | disposition home or self-care (01) ==
LOC: HO.HMCH 08:16
PROVIDERS: PCP Physician Assistant Medical; Visit Provider Physician Assistant Medical
DX: Z23 Encounter for immunization (principal)

== ENCOUNTER → 2025-03-31 08:15 | Outpatient (BNVA) | payer OTHER, SELFPAY | PROVIDERS: PCP Physician Assistant Medical; Visit Provider Physician Assistant Medical | DX: Z23 Encounter for immunization (principal) | CPT/HCPCS: 90471; 90746 ==

== ENCOUNTER 2025-04-12 08:21 | Outpatient (REF) | payer OTHER, SELFPAY ==
--- OUTSIDE RECORDS SUMMARY | 2025-04-12 08:31 | XMS_ITS | Clinical Summary ---
Author Organization [facility] Address [address] [place] [phone] Phone Care Team Providers Care Stock Control Clerk Name Role Phone Mariel Rosas MD Primary Care Provider [phone] Allergies No known active allergies Medications amitriptyline [...] complete this topic Procedures * Due to [facility] law, this organization might not be sharing sensitive test results. Procedure Name Priority Date/Time Associated Diagnosis Comments CHLAMYDIA AND GONORRHEA, AMPLIFIED Routine 08/28/2020 4:20 PM EDT Well adult exam from Last 3 Months or Most Recently Relevant to Health Maintenance Results * Due to [place] [employer] law, this organization might not be sharing sensitive test results. * Chlamydia and Gonorrhea, Amplified (08/28/2020 4:20 PM EDT) Chlamydia Trachomatis, DNA Probe NOT DETECTED (NEG) [facility] Comment:Reference range: NOT DETECTED URINE GC AMP PROBE NOT DETECTED (NEG) [facility] Comment: Reference range: NOT DETECTED (NOTE) The analytical performance characteristics of this assay, when used to test SurePath(TM) specimens have been determined by [employer]. The modifications have not been cleared or approved by the FDA. This assay has been validated pursuant to the CLIA regulations and is used for clinical purposes. = For additional information, please refer to https://education.[employer]faq/HTC197 (This link is being provided for information/ educational purposes only.) = Test Performed by: [employer], [address] [place] [address], [place]. [address]. Professor Of Communication: Yesenia Guy MD. Testing performed or reported by [facility], a Service of [facility], [facility] [place] [address] Shahriar Asencio MD, Homeopathic Doctor Urine 08/28/2020 4:20 PM EDT 08/29/2020 1:43 AM EDT us Mariel Rosas MD LAB MICROBIOLOGY - GENERAL ORDER GIRMA Final Result [facility] from Last 3 Months or Most Recently Relevant to Health Maintenance [place] [facility] [id number] Care Teams Stock Control Clerk Relationship Specialty Start Date End Date Mariel Rosas MD PCP - General Pediatrics 05/26/18
--- OUTSIDE RECORDS SUMMARY | 2025-04-12 08:31 | XMS_ITS | Clinical Summary ---
Author Organization [facility] Address [address] [place] [address] Care Team Providers Care Miller Kiln Dried Salt Name Role Phone Unavailable Primary Care Provider [...]
[2025-04-13 10:47] LABS: Hepatitis B Surface Ab Qnt 415 mIU/mL (> OR = 10)
== END 2025-04-12 08:22 | disposition home or self-care (01) ==
LOC: HO.HMGCLDS 08:21
PROVIDERS: PCP Physician Assistant Medical; Visit Provider Physician Assistant Medical
DX: Z76.89 Persons encountering health services in other specified circumstances (principal)
CPT/HCPCS: 36415; 86317

== ENCOUNTER 2025-10-14 09:43 | Outpatient (AMB) | payer OTHER, SELFPAY ==
--- NOTE | 2025-10-14 09:48 | MHC.OFFVIS ---
Intake Visit Reasons: r/s 4m f/u Allergies No Known Allergies Allergy (Verified 10/14/25 09:53) Medication List - Last Reconciled 10/14/25 by Betty Timmons CNP amitriptyline 75 mg PO BEDTIME 90 days bkkjuhqpac-atmzjvvgkcwdx-tzha 50-325-40 mg tabs PO copper (ParaGard T 380A) intrauterine topiramate 50 mg PO BID 90 days HPI Comments Details: She was doing okay. 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 Headaches were happening almost every day, but happened later on in the day and were not as severe. She rated pain as 3/10. Butalbital as needed helped, and she only had to use medication few times in last 5 months. Sleep was okay. Increased dose of amitriptyline helped, not waking up with headaches anymore.?Headaches were happening, about 4x/week, usually in the evening. They were less severe and she was able to function with it. She returned in 01/2025 after 18 months, unable to follow up sooner due to some insurance issues, with?daily headaches with pressure-type pain all over head. Sometimes it was dull and she was able to function. Other times, pain was more severe and she could not get out of bed. It was associated with some photophobia. There was no sonophobia, nausea, or vomiting. She had been out of medications for at least 8 months. Headaches had been treated with amitriptyline 100mg at bedtime, topiramate 100mg twice a day, and butalbital as needed.? In the past, had daily headaches 4/10 that come and go with light background headache. Can function with it. No triggers. Had head injury while playing soccer in 2009 without LOC and since then has had constant, steady, generalized headache without any other associated symptoms, specifically no dizziness, nausea, vomiting, photophobia, sonophobia, or loss of appetite. Her vision was normal. No sinus problems. No neck pain or stiffness. MRI of the brain and cervical spine were normal. Has chronic daily headache since 2009. [facility] Medical History Class 1 obesity with body mass index (BMI) of 33.0 to 33.9 in adult Establishing care with new doctor, encounter for Annual physical exam History of use of contraceptive intrauterine device (IUD) Vitamin D deficiency Concussion Chronic headaches Surgical History Hx of wisdom tooth extraction Family History Maternal Grandmother Lung cancer Breast cancer Maternal Grandfather CVD (cardiovascular disease) Paternal Grandfather CVD (cardiovascular disease) Social History Alcohol intake: current Alcohol intake frequency: holidays/special occasions only Comment: previously medicated Patient Tobacco Use Status: Never used Tobacco Current occupational status: employed Current occupation: [employer] Sexual orientation: Straight/Heterosexual Gender identity: Female Female Reproductive History Menstrual Age of Menarche: 13 Review of Systems Const Denies chills, Denies daytime sleepiness, Denies difficulty sleeping, Denies fatigue, Denies fever(s), Denies frequent falls, Reports headache(s), Denies increased appetite, Denies poor appetite, Denies snoring, Denies weakness, Denies weight gain and Denies weight loss Eyes Denies loss of vision ENT Denies vertigo, Denies dizziness, Reports headache(s) and Denies neck pain Card Denies chest pain at rest, Denies chest pain with activity, Denies syncope, Denies leg edema, Denies palpitations, Denies dyspnea and Denies dyspnea on exertion Resp Denies cough, Denies dyspnea, Denies dyspnea on exertion and Denies snoring GI Denies abdominal pain, Denies constipation, Denies heartburn, Denies diarrhea and Denies nausea Denies urinary frequency, Denies urinary incontinence and Denies urinary urgency Musc Denies abnormal gait, Denies back pain, Denies myalgias, Denies arthralgias, Denies neck pain, Denies numbness and Denies tingling Neuro Denies abnormal gait, Denies vertigo, Denies dizziness, Denies syncope, Denies frequent falls, Reports headache(s), Denies lack of coordination, Denies loss of vision, Denies memory loss, Denies numbness, Denies Other visual disturbances, Denies restless legs, Denies seizure-like activity, Denies tingling, Denies paresthesias, Denies tremor(s) and Denies weakness Psych Denies anxiety, Denies depression, Denies auditory hallucinations, Denies memory loss and Denies visual hallucinations Endo Denies fatigue and Denies palpitations Physical Exam Const Other: General Appearance:? normal, in no acute distress. Heart:? S1, S2 normal, no murmurs. Lungs:? clear anteriorly and posteriorly. Musculoskeletal:? normal. Extremities:? no edema. Psych:? alert, oriented, cognitive function intact, cooperative with exam. Neuro Other: Abnormal Neurological Findings:?none.? Mental Status: alert and oriented X 3. Normal attention, orientation, memory, and affect. Cranial Nerves: Pupils are equal, round, and reactive to light. External ocular muscles are intact. Visual madera are full, no ptosis. Face is symmetrical, no facial weakness or droop. Facial sensations are normal. Tongue protrudes in midline. Palate elevates symmetrically. Shoulder shrugging is normal Motor Examination: Normal muscle tone, bulk and strength. No atrophy or fasciculations. No drift of the extended upper extremities. DTR 2+. Plantars are flexor. Sensory Exam: Normal light touch, temperature, pinprick, vibration, and joint-position sensations. Rhomberg sign is absent. Coordination: No ataxia. No titubation. Gait Exam: Within normal limits. Cerebellar Signs: Btqmtz-ne-gtmc is okay. Extrapyramidal System: No tremor, rigidity with normal facial expressions. No bradykinesia. No bradyphrenia. Normal arm swing and posture. No propulsion or retropulsion. Speech: Normal. Results Reviewed Results Reviewed: 07/25/2022 Opening CSF pressure measured 11.5 cm of water. Assessment & Plan Assessment & Plan (1) Tension headache: Code(s): G44.209 - Tension-type headache, unspecified, not intractable Category: Medical Plan: Increase topiramate 50mg 1 tablet in the morning and 2 tablets at bedtime. Continue amitriptyline 75mg 1 tablet at bedtime. Continue hjlfhgmizv-WXZK-esjh 50-325-40mg 1 tablet as needed q8h for headache #20 for 30 days. Follow up in 3 months or sooner as needed. Medications: New sapuqsmwir-iyrwubiytannp-sqfb 50-325-40 mg 1 tab PO Q8H PRN 20 tabs 5RF headache 30 days Changed From topiramate 50 mg PO BID 90 days 180 tabs 1RF To topiramate 50 mg orally 1 tablet in the morning and 2 tablets at bedtime; 270 tabs 1RF 90 days Refilled amitriptyline 75 mg PO BEDTIME 90 tabs 1RF 90 days Coding Level of Care Code Est Pt Level 4 (90626) Diagnoses Tension headache G44.209
--- OUTSIDE RECORDS SUMMARY | 2025-10-14 10:52 | XMS_ITS | Encounter Summary ---
Author Organization [facility] Address [address] [phone] Phone Care Team Providers Care Main Line Assembler Name Role Phone Mariel Rosas MD Primary Care Provider + Encounter Details Date Type Department Care Team (Late st Contact Info) Description 07/28/2020 Procedure Pass [facility] [address] [place] [address] Social History Tobacco Use Types Packs/Day Years Used Date Smoking Tobacco: Never Smokeless Tobacco: Never Alcohol Use Standard Drinks/Week Comments Yes 1 (1 standard drink = 0.6 oz pur e alcohol) Comments No Sex and Gender Information Value Date Recorded Sex Assigned at Female 09/15/2024 1:59 PM EDT Legal Sex Female 9:50 AM EDT Gender Identity Female 09/15/2024 1:59 PM EDT Sexual Orientation Straight 09/15/2024 1: 59 PM EDT documented as of this encounter Plan of Treatment Not on file documented as of this encounter Visit Diagnoses Not on filedocumented in this encounter Care Teams Main Line Assembler Relationship Specialty Start Date End Date Mariel Rosas MD [address] [place] [id number] PCP - General Pediatrics 07/27/20 documented as of this encounter Additional Source Comments The information contained in this document represents components of the legal health record. It is not the complete legal health record.[facility]
--- OUTSIDE RECORDS SUMMARY | 2025-10-14 10:53 | XMS_ITS | Clinical Summary ---
Author Organization [facility] Address [address] [place] [address] Care Team Providers Care Chip Mucker Name Role Phone Unavailable Primary Care Provider [...] COVID-19 Vaccine ( - 2023-2 5 season) 2025 HPV Vaccines (No Doses Required) Completed Pneumococcal Vaccine: Pediat genesis (0-5 Years) and At-Risk Patients (6 to 49 Years) Aged Out No longer eligible b ased on patient's age to complete this topic
--- OUTSIDE RECORDS SUMMARY | 2025-10-14 10:53 | XMS_ITS | Clinical Summary ---
Author Organization [facility] Address [address] [phone] Phone Care Team Providers Care Refinery Superintendent Name Role Phone Mariel Rosas MD Primary Care Provider + Allergies No known active allergies Medications topiramate (TOPAMAX) 100 MG tablet Take 100 mg by mouth 2 (two) times a day. Active amitriptyline (ELAVIL) 75 MG tablet Take by mouth nightly at bedtime. Active copper (PARAGARD T 380A) 380 square mm intrauterine device 1 Device by Intrauterine route Once every 10 years. Active Active Problems No known active problems Immunizations Immunization Administration Dates Next Due COVID-19 (Pre-09/22) Pfizer Vaccine, mRNA, PF 04/19/2022,04/26/2021,04/05/2021 Hepatitis B Adult 09/23/1995,01/24/1995,12/25/18 95 INFLUENZA, SPLIT VIRUS, TRIVALENT PF 08/27/2024 Influenza Quadrivalent Preservative Free IM 08/31,08/23/2022 Influenza Recombinant Trival ent Preservative Free IM 08/18/2025 MMR 12/27/1998,03/24/1996 Tdap 08/07/2017 Varicella 06/25/2010,03/24/1996 Social History Tobacco Use Types Packs/Day Years Used Date Smoking Tobacco: Never Smokeless Tobacco: Never Alcohol Use Standard Drinks/Week Comments Not Currently 1 (1 standard drink = 0.6 oz pur e alcohol) Education Answer Date Recorded Are you interested in more education? Not on vonnie e 03/29/2023 Are you concerned about learning? Not on file 03/29/2023 No 03/29/2023 No 03/29/2023 Digital Access Answer Date Recorded No 04/27/2023 No 04/27/2023 No 04/27/2023 Reliable internet access at home? Not on file 04/27/2023 Device with a working camera? Not on file Comments No Sex and Gender Information Value Date Recorded Sex Assigned at Female 09/15/2024 1:59 PM EDT Legal Sex Female 9:50 AM EDT Gender Identity Female 09/15/2024 1:59 PM EDT Sexual Orientation Straight 09/15/2024 1: 59 PM EDT Last Filed Vital Signs Vital Sign Reading Time Taken Comments Blood Pressure 130/86 06/26/2021 9:15 AM EDT Pulse 116 06/26/2021 9:15 AM EDT Temperature 36.7 C (98 F) 06/26/2021 9:15 AM EDT Respiratory Rate 16 06/26/2021 9:15 AM EDT Oxygen Saturation 99% 06/26/2021 9:15 AM EDT Inhaled Oxygen Concentration - - Weight 97.5 kg (215 lb) 06/26/2021 9:15 AM EDT Height 162.6 cm (5' 4 ) 06/26/2021 9:15 AM EDT Body Mass Index 36.9 06/26/2021 9:15 AM EDT Plan of Treatment Health Maintenance Due Date Last Done Comments DEPRESSION SCREENING 2006 HEPATITIS C SCREENING 2012 HIV ONE-TIME SCREENING (18-65 YEARS) 2012 PNEUMOCOCCAL VACCINES (0-49 years) (1 of 2 - PCV) 2013 PAP SMEAR 2015 COVID-19 VACCINE ( season) 2025 04/19/2022, 04/26/2021, 04/05/2021 Adult Td,Tdap Booster 08/07/2027 08/07/2017 , 07/16/2016, 01/01/2007 IPV VACCINES Completed 12/01/1998, 0712/1994, 03/31/1995, Additional history exists MENINGOCOCCAL VACCINES (ACWY) Completed 08/06/2012, 07/08/2007 HEPATITIS A VACCINES Aged Out 08/10/2018 No long er eligible based on patient's age to complete this topic SMOKING STATUS SCREENING (Once After 26 Yrs) Completed 06/26/2021 INFLUENZA VACCINE Completed 08/18/2025, , 09/12/2023, Additional history exists HIB VACCINES Aged Out No longer eligi ble based on patient's age to complete this topic MENINGOCOCCAL VACCINES (B) Aged Out N o longer eligible based on patient's age to complete this topic Medical Devices Implanted Type Area Television Presenter Device Identifier Shelf Expiration Date Model / Serial / Lot Intrauterine Device Intrauterine Device Insurance [facility] Advance Directives For more information, please contact: [phone] (9AM - 5PM [facility], Friday-Friday) * Full Code (Presumed) (Latest Code Status on File) Date Activated Date Inactivated Comments 07/28/2020 12:54 PM Care Teams Refinery Superintendent Relationship Specialty Start Date End Date Mariel Rosas MD [address] [place] [address] [place] [address] PCP - General Pediatrics 07/27/20 Additional Source Comments The information contained in this document represents components of the legal health record. It is not the complete legal health record.[facility]
--- OUTSIDE RECORDS SUMMARY | 2025-10-14 10:53 | XMS_ITS | Clinical Summary ---
Author Organization [facility] Address [address] [place] [phone] Phone Care Team Providers Care Mastic Floor Layer Name Role Phone Mariel Rosas MD Primary Care Provider [phone] Allergies No known active allergies Medications amitriptyline [...] 88 08/28/2020 4:01 PM EDT Temperature 37.1 C (98.7 F) 08/28/2020 4:01 PM EDT Respiratory Rate - - Oxygen Saturation - - Inhaled Oxygen Concentration - - Weight 98.3 kg (216 lb 11.2 oz) 08/28/2020 4:01 PM EDT Height 162.6 cm (5' 4 ) 08/28/2020 4:01 PM EDT Body Mass Index 37.2 08/28/2020 4:01 PM EDT Plan of Treatment Health Maintenance Due Date Last Done Comments Influenza Vaccines (#1) 2025 09/21/20, 09/21/2019, 08/10/2018 COVID-19 Vaccine (2 - season) 2025 04/05/2021 DTaP,Tdap,and Td Vaccines (9 - Td [...] complete this topic Procedures * Due to [facility] law, this organization might not be sharing sensitive test results. Procedure Name Priority Date/Time Associated Diagnosis Comments CHLAMYDIA AND GONORRHEA, AMPLIFIED Routine 08/28/2020 4:20 PM EDT Well adult exam from Last 3 Months or Most Recently Relevant to Health Maintenance Results * Due to [place] [employer] law, this organization might not be sharing sensitive test results. * Chlamydia and Gonorrhea, Amplified (08/28/2020 4:20 PM EDT) Chlamydia Trachomatis, DNA Probe NOT DETECTED (NEG) [facility] Comment:Reference range: NOT DETECTED URINE GC AMP PROBE NOT DETECTED (NEG) [facility] Comment: Reference range: NOT DETECTED (NOTE) The analytical performance characteristics of this assay, when used to test SurePath(TM) specimens have been determined by [facility]. The modifications have not been cleared or approved by the FDA. This assay has been validated pursuant to the CLIA regulations and is used for clinical purposes. = For additional information, please refer to https://education.Expand Beyond/faq/WML127 (This link is being provided for information/ educational purposes only.) = Test Performed by: [facility], [address] [place] [address]. [id number]. Market Development Specialist: Yesenia Guy MD. Testing performed or reported by [facility], a Service of [facility], [facility] [place] [address] Shahriar Asencio MD, Conservation Coordinator Urine 08/28/2020 4:20 PM EDT 08/29/2020 1:43 AM EDT us Mariel Rosas MD LAB MICROBIOLOGY - GENERAL ORDER GIRMA Final Result [facility] from Last 3 Months or Most Recently Relevant to Health Maintenance Insurance [facility] [place] [id number] Care Teams Mastic Floor Layer Relationship Specialty Start Date End Date Mariel Rosas MD PCP - General Pediatrics 05/26/18
== END 2025-10-14 10:11 | disposition home or self-care (01) ==
LOC: HO.HSM 09:44
PROVIDERS: PCP Physician Assistant Medical; Visit Provider Registered Nurse
DX: G44.209 Tension-type headache, unspecified, not intractable (principal)
CPT/HCPCS: 99214

== ENCOUNTER → 2025-10-14 09:43 | Outpatient (BNVA) | payer BC, SELFPAY | PROVIDERS: PCP Physician Assistant Medical; Visit Provider Registered Nurse | DX: G44.209 Tension-type headache, unspecified, not intractable (principal); Z79.899 Other long term (current) drug therapy | CPT/HCPCS: 99212 ==